=== PATIENT | male | born 1945 | race Caucasian/White ===

== ENCOUNTER 2019-04-16 01:10 | Inpatient (IN) ==
--- NOTE | 2019-04-16 01:17 | Emergency Department Note ---
ED Disposition Clinical Impression: STEMI (ST elevation myocardial infarction) Qualifiers: Involved coronary artery: unspecified coronary artery Qualified Code(s): I21.3 - ST elevation (STEMI) myocardial infarction of unspecified site Disposition: Admitted As Inpatient Condition on Discharge: Serious Referrals: Provider,Referral, MD [Primary Care Provider] - - Critical Care Critical Care Time: Yes Attestation: On , the high probability of a clinically significant, sudden or life threatening deterioration of the following system(s) required my full and direct attention, intervention and personal management. The time I documented below is in addition to time spent performing reported procedures but includes the following listed in this critical care notation. Total Critical Care Time: 30 Vital system(s) involved:: Respiratory Failure My critical care processes included: Assessment & monitoring of V/S, Initial and Re-exams, Data Review/Interpretation, Coordinating Care, Medication Orders and management, Documentation Medical Decision Making - Dylan Inquiry Pt receiving controlled substance: Yes Dylan was queried for this patient: No Reason not queried -: Emergent pt cond-no time Risks and benefits of using a controlled substance: were not discussed with pt by me Vital Signs: 04/16/19 01:11 04/16/19 01:18 04/16/19 01:24 Temperature 97.6 F 97.6 F Temperature Source Oral Oral Pulse Rate Pulse Rate [Right] 113 H 113 H 109 H Respiratory Rate 20 20 20 Blood Pressure Blood Pressure [Right Arm] 140/79 140/79 143/54 H Blood Pressure Mean [Right Arm] 99 99 83 Blood Pressure Source [Right Arm] Automatic Cuff Automatic Cuff Automatic Cuff Blood Pressure Position [Right Arm] Supine Supine Supine 02 Sat by Pulse Oximetry 99 99 100 Oxygen Delivery Method Room Air Room Air Nasal Cannula Oxygen Flow Rate (LPM) 2 04/16/19 01:30 04/16/19 01:39 Temperature 97.6 F 97.6 F Temperature Source Oral Oral Pulse Rate 84 Pulse Rate [Right] 84 Respiratory Rate 20 16 Blood Pressure 96/58 L Blood Pressure [Right Arm] 96/58 L Blood Pressure Mean [Right Arm] 70 Blood Pressure Source [Right Arm] Automatic Cuff Blood Pressure Position [Right Arm] Supine 02 Sat by Pulse Oximetry 97 Oxygen Delivery Method Nasal Cannula Nasal Cannula Oxygen Flow Rate (LPM) 2 2 - Lab Data Lab Results 04/16/19 01:10: WBC 12.4 H, RBC 5.35, Hgb 16.3, Hct 50.2, MCV 93.8, MCH 30.5, MCHC 32.5, RDW 12.9, Plt Count 315, MPV 9.3, Neut % (Auto) 49.3, Lymph % (Auto) 41.0, [place] % (Auto) 6.5, Eos % (Auto) 2.6, Baso % (Auto) 0.7, Neut # (Auto) 6.1, Lymph # (Auto) 5.1 H, [place] # (Auto) 0.8, Eos # (Auto) 0.3, Baso # (Auto) 0.1 Result diagrams: 04/16/19 01:10 Orders (Tests/Meds): ED MEDICATIONS Generic Name Dose Route Start Last Admin Trade Name Freq PRN Reason Stop Dose Admin Diphenhydramine HCl 50 mg 04/16/19 01:30 Benadryl 50mg/1ml Vial IV 04/16/19 01:31 ONCE ONE Fentanyl Citrate 25 mcg 04/16/19 01:30 Fentanyl 250mcg/5ml Vial IV 04/17/19 01:30 Q3MINP PRN Moderate to Severe Pain Fentanyl Citrate 50 mcg 04/16/19 01:30 Fentanyl 250mcg/5ml Vial IV 04/17/19 01:30 Q3MINP PRN Moderate to Severe Pain Flumazenil 0.2 mg 04/16/19 01:30 Romazicon 0.1mg/Ml 5ml Vial IV 04/16/19 23:00 NEEDED PRN Sedation Heparin Sodium (Porcine) 10,000 unit 04/16/19 01:30 Heparin 1,000 Units/Ml 10ml Vial ([facility]) IV 04/16/19 05:30 NEEDED PRN Emergency [facility] Heparin Sodium/Sodium Chloride 3,000 unit 04/16/19 01:30 Heparin 1000 Units/500ml Ns ([facility]) IV 04/16/19 01:31 ONCE ONE Sodium Chloride 1,000 mls @ 25 mls/hr 04/16/19 01:30 Sod Chlor 0.9% 1000ml Bag IV 04/17/19 01:30 .Q25H REHAN Sodium Chloride 1,000 mls @ 999 mls/hr 04/16/19 01:45 Sod Chlor 0.9% 1000ml Bag IV 04/16/19 02:45 .Q1H1M REHAN Lidocaine HCl 20 ml 04/16/19 01:30 Lidocaine 1% 20ml Mdv IJ 04/16/19 01:31 ONCE ONE Midazolam HCl 1 mg 04/16/19 01:30 Midazolam 2mg/2ml Vial IV 04/17/19 01:30 Q3MINP PRN Sedation Midazolam HCl 1 mg 04/16/19 01:30 Midazolam 1mg/Ml 5ml Vial IV 04/17/19 01:30 Q3MINP PRN Sedation Naloxone HCl 0.4 mg 04/16/19 01:30 Narcan 0.4mg/Ml Vial IV 04/17/19 01:30 Q5MINP PRN Decreased Respirations Nitroglycerin 0.4 mg 04/16/19 01:17 04/16/19 01:25 Nitrostat 0.4mg Sl Tablet SL 04/17/19 01:17 0.4 mg Q5MINP PRN Administration Chest Pain Nitroglycerin 800 mcg 04/16/19 01:30 Nitroglycerin 800mcg/8ml Syr ([facility]) IV 04/17/19 01:30 NEEDED PRN Emergency [facility] [employer] [facility] Verapamil HCl 2.5 mg 04/16/19 01:30 Verapamil 2.5mg/Ml 2ml Vial IV 04/16/19 01:31 ONCE ONE Discontinued Medications Generic Name Dose Route Start Last Admin Trade Name Freq PRN Reason Stop Dose Admin Aspirin 243 mg 04/16/19 01:21 04/16/19 01:25 Aspirin 81mg Chewable Tablet PO 04/16/19 01:22 243 mg ONCE ONE Administration Heparin Sodium (Porcine) 12,500 unit 04/16/19 01:24 04/16/19 01:26 Heparin Sodium 5,000 Units/Ml Vial IV 04/16/19 01:25 12,500 unit ONCE ONE Administration Morphine Sulfate 4 mg 04/16/19 01:17 04/16/19 01:21 Morphine 4mg/Ml Syringe IV 04/16/19 01:18 4 mg ONCE ONE Administration Ondansetron HCl 4 mg 04/16/19 01:17 04/16/19 01:21 Zofran 4mg/2ml Vial IV 04/16/19 01:18 4 mg ONCE ONE Administration Ticagrelor 180 mg 04/16/19 01:24 04/16/19 01:26 Brilinta 90mg Tablet PO 04/16/19 01:25 180 mg ONCE ONE Administration ORDERS Category Date Time Status Chest XR -- portable [XR chest portable] Stat Exams 04/16/19 01:15 Taken Basic Metabolic Panel Stat Lab 04/16/19 01:10 Ordered Troponin I Stat Lab 04/16/19 01:10 Ordered - Radiology Data #1 Image(s): Chest Image Reviewed: Yes I reviewed the patient's radiology image Cardiomegaly, no acute process - ECG Data Tracing #1 EKG interpreted by Ugo Deshpande MD: Rhythm: Atrial fibrillation Rate: 95 [place]: Left Ectopy: none Conduction: normal ST Segment Changes: Elevation in leads I and aVL, depression in inferior leads T Wave Changes: none Q Waves: none No evidence of acute ischemia or injury Medical Decision Narrative: Patient voiced preference to be transferred to the [facility]. I advised against it. I advised him that time to balloon and open arteries the most important thing in myocardial infarction. He agrees to stay here to be treated but once the ID contacted to advise that he is here. Case discussed with Dr. Yip who requests 100 units/kg of heparin and 180 mg of Brilinta and he will come in to take the patient to the [facility]. General Adult HPI - General Chief complaint: Chest Pain Stated complaint: chest pain Time Seen by Provider: 04/16/19 01:11 - History of Present Illness HPI narrative: 30 to 45 minutes ago developed chest pain into his left arm with shortness of breath, nausea, diaphoresis. Prior history of coronary artery disease with stent placement in 2004 at the [facility]. Also has paroxysmal atrial fibrillation. He normally takes Xarelto, but has been off of it for a few days because he is supposed to have an epidural injection into his back on Wednesday of this week. He took 1 baby aspirin today. He took one nitroglycerin in route to the hospital. Pain is 04/06. States that he has a sensitivity to morphine which causes nausea and vomiting. He can take morphine if he gets something for nausea and vomiting first. - Related Data Allergies Allergy/AdvReac Type Severity Reaction Status Date / Time Indomethacin Allergy Unknown Uncoded 06/15/17 15:03 Hydromorphone AdvReac Mild Nausea Uncoded 04/16/19 01:17 [facility] History - Hepatitis A Screen Attestation statement:: This patient has been screened for Hepatitis A risk factors. I have reviewed the patient's past medical history: Yes ROS Obtained: Yes All systems reviewed & no additional complaints - Cardiovascular Cardiovascular: Reports chest pain, Reports diaphoresis - Respiratory Respiratory: Yes dyspnea - Gastrointestinal Gastrointestingal: Reports: nausea Physical Exam - General General appearance: alert, anxious - Head Head exam: atraumatic, normocephalic - Eye Eye exam: Present: normal appearance, EOMI - ENT ENT exam: Present: mucous membranes moist - Neck Neck exam: Present: normal inspection, trachea midline - Chest Chest inspection: Present: normal inspection, symmetric chest wall rise - Respiratory Respiratory exam: Present: normal lung sounds bilaterally. Absent: respiratory distress - Cardiovascular Cardiovascular exam: Present: tachycardia, irregular rhythm, normal heart sounds - Abdominal Exam Abdominal exam: Present: soft. Absent: distention, tenderness - Extremities Exam Extremities exam: Present: normal inspection - Neurological Exam Neurological exam: Present: alert, oriented X3 - Psychiatric Psychiatric exam: Present: anxious - Skin Skin exam: Present: warm, dry
[2019-04-16 01:25] LABS: Basophils # 0.1 K/mm3 (0-0.2); Basophils % 0.7 % (0.1-2.0); Eosinophils # 0.3 K/mm3 (0.0-0.4); Eosinophils % 2.6 % (0.1-12.0); Hematocrit 50.2 % (42.0-52.0); Hemoglobin 16.3 g/dL (14.1-18.0); Lymphocytes # 5.1 K/mm3 (0.7-4.5); Mean Corpuscular HGB Conc 32.5 g/dL (31.8-35.4); Mean Corpuscular Volume 93.8 fl (80-94); Mean Platelet Volume 9.3 fl (7.4-10.4); Monocytes # 0.8 K/mm3 (0.1-1.0); Monocytes % 6.5 % (1.7-9.3); Neutrophils # 6.1 K/mm3 (1.8-7.8); Neutrophils % 49.3 % (37.0-80.0); Platelet Count 315 K/mm3 (142-424); Red Blood Count 5.35 M/mm3 (4.60-6.20); Red Cell Distribution Width 12.9 % (11.5-17.5); White Blood Count 12.4 K/mm3 (4.8-10.8)
[2019-04-16 02:10] LABS: Anion Gap 18.7 mEq/L (5-15); Calcium 9.3 mg/dL (8.5-10.1)
[2019-04-16 06:32] LABS: Basophils % 0.3 % (0.1-2.0); Eosinophils % 0.4 % (0.1-12.0); Hematocrit 45.6 % (42.0-52.0); Hemoglobin 15.4 g/dL (14.1-18.0); Lymphocytes # 1.5 K/mm3 (0.7-4.5); Lymphocytes % 15.3 % (10-50); Mean Corpuscular HGB Conc 33.7 g/dL (31.8-35.4); Mean Corpuscular Volume 92.9 fl (80-94); Mean Platelet Volume 8.6 fl (7.4-10.4); Monocytes # 0.4 K/mm3 (0.1-1.0); Monocytes % 3.9 % (1.7-9.3); Neutrophils % 80.1 % (37.0-80.0); Platelet Count 228 K/mm3 (142-424); Red Blood Count 4.91 M/mm3 (4.60-6.20); Red Cell Distribution Width 12.7 % (11.5-17.5)
[2019-04-16 06:43] LABS: Anion Gap 16.5 mEq/L (5-15); Calcium 8.8 mg/dL (8.5-10.1)
--- NOTE | 2019-04-16 07:43 | History & Physical Report ---
*Admission Date: 04/16/19 *Chief complaint: chest pain, STEMI *History of present illness: Mr. Min is a 73-year-old male who usually gets his care from the [place] who presented acutely last night to the ER due to onset of chest pain. States he was at home and had some slight discomfort early in the afternoon that self resolved. Was not brought on by stress or exertion. He was watching football last night and had worsening onset of chest pain late last night between 10 and 12 in onset of numbness in his left arm. This was followed abruptly by significant pain and pressure in his chest like somebody was sitting on it. He had his drive him initially headed to the [place] but did not feel that he could make it that far so they stopped at [facility] for acute management. Upon arrival he was found to have a STEMI and was taken emergently to the [facility]. Admitted to medicine for further management after left heart cath and placement of 2 stents in proximal LAD. Patient otherwise has no complaints and is at his baseline level of function. History complicated by diabetes, chronic back pain, history of coronary artery disease and A. fib on Xarelto and aspirin. Denies any nausea, vomiting, shortness of breath. Chest pain resolved. Chronic edema in bilateral lower extremities. Is fixated this morning on getting to the [place] as that is where he gets all of his care. Does report he has a follow-up with his PCP on Wednesday in [facility] History I have reviewed the patient's past medical history: Yes Medical History: Reports:: Diabetes Mellitus Type 2, Hypertension Denies:: Cancer, MRSA *Have you ever received a pneumonia vaccine?: Yes *Have you received a flu vaccine this season?: Yes Other Medical History: Reports: Hypothyroidism Laterality Cases: Right: Arthroscopy Knee Other Surgeries: Yes: Cardiac Catheterization - *Social History Smoking Status: Current some day smoker Tobacco Type: smokeless tobacco # Packs/Day (cigarettes): 1 Alcohol Intake: never *Occupational Status:: disabled Housing: house Household Members: spouse *Travel in the last 8 weeks: None Family Hx:: No significant family history Review of Systems - Review of Systems Review of systems:: pertinent systems reviewed and negative unless documented below Meds Home Medications Medication Instructions Recorded Confirmed Type Aspirin 81 mg PO DAILY 04/16/19 04/16/19 History Atorvastatin Calcium [Atorvastatin 80 mg PO HS 04/16/19 04/16/19 History 80mg Tab] Felodipine [Felodipine ER] 10 mg PO DAILY 04/16/19 04/16/19 History Finasteride [Proscar] 5 mg PO DAILY 04/16/19 04/16/19 History Gabapentin [Gabapentin 300mg Cap] 300 mg PO TID 04/16/19 04/16/19 History Insulin Glargine,Hum.rec.anlog 50 unit SQ BID 04/16/19 04/16/19 History [Insulin Glargine 100 Units/mL 3mL flexpen] Isosorbide Mononitrate [Imdur 60mg 60 mg PO DAILY 04/16/19 04/16/19 History ER tablet] Lisinopril [Lisinopril 40mg Tablet] 40 mg PO DAILY 04/16/19 04/16/19 History Metformin HCl 500 mg PO TID 04/16/19 04/16/19 History Metoprolol Tartrate 25 mg PO BID 04/16/19 04/16/19 History Omeprazole [Omeprazole 20mg 20 mg PO DAILY 04/16/19 04/16/19 History Capsule] glipiZIDE [Glipizide] 10 mg PO BID 04/16/19 04/16/19 History hydroCHLOROthiazide [HCTZ 25mg 25 mg PO DAILY 04/16/19 04/16/19 History tab] Allergies Allergy/AdvReac Type Severity Reaction Status Date / Time Indomethacin Allergy Unknown Uncoded 06/15/17 15:03 Hydromorphone AdvReac Mild Nausea Uncoded 04/16/19 01:17 Exam Vital signs and Labs for Last 24 Hours: Temp Pulse Resp BP Pulse Ox 97.9 F 92 H 16 129/82 92 L 04/16/19 04:35 04/16/19 06:50 04/16/19 06:50 04/16/19 06:50 04/16/19 06:50 Laboratory Results - last 24 hr 04/16/19 01:10: WBC 12.4 H, RBC 5.35, Hgb 16.3, Hct 50.2, MCV 93.8, MCH 30.5, MCHC 32.5, RDW 12.9, Plt Count 315, MPV 9.3, Neut % (Auto) 49.3, Lymph % (Auto) 41.0, [place] % (Auto) 6.5, Eos % (Auto) 2.6, Baso % (Auto) 0.7, Neut # (Auto) 6.1, Lymph # (Auto) 5.1 H, [place] # (Auto) 0.8, Eos # (Auto) 0.3, Baso # (Auto) 0.1 04/16/19 01:30: Sodium 136, Potassium 3.7, Chloride 99, Carbon Dioxide 22, Anion Gap 18.7 H, BUN 23 H, Creatinine 1.32 H, Estimated Creat Clear 51, Estimated GFR 53 L, Est GFR ( Amer) 65, Glucose 355 H, Calcium 9.3, Troponin I 0.14 H 04/16/19 01:58: Activated Clotting Time 216 H* 04/16/19 02:41: Activated Clotting Time > 400 H* D 04/16/19 06:00: WBC 10.0, RBC 4.91, Hgb 15.4, Hct 45.6, MCV 92.9, MCH 31.3 H, MCHC 33.7, RDW 12.7, Plt Count 228 D, MPV 8.6, Neut % (Auto) 80.1 H, Lymph % (Auto) 15.3, [place] % (Auto) 3.9, Eos % (Auto) 0.4, Baso % (Auto) 0.3, Neut # (Auto) 8.0 H, Lymph # (Auto) 1.5, [place] # (Auto) 0.4, Eos # (Auto) 0.0, Baso # (Auto) 0.0 04/16/19 06:00: Sodium 135 L, Potassium 4.5 D, Chloride 101, Carbon Dioxide 22, Anion Gap 16.5 H, BUN 19 H, Creatinine 0.99 D, Estimated Creat Clear 66, Estimated GFR 75, Est GFR ( Amer) 90 D, Glucose 282 H D, Calcium 8.8 I & O for Last 24 hours: Intake & Output 04/13/19 04/14/19 04/15/19 04/16/19 23:59 23:59 23:59 23:59 Intake Total 150 / 150 Output Total 500 / 500 Balance -350 / -350 Weight 127.7 kg - Constitutional no acute distress, morbidly obese - *Routine HEENT Exam Head: Present: normocephalic Eye: Present: EOMI, PERRL ENT: Present: mucous membranes moist - *Routine Neck Exam Present: supple. Absent: lymphadenopathy - *Routine Respiratory Exam Present: CTA bilaterally - *Routine Cardiovascular Exam Present: irregularly irregular. Absent: murmur - *Routine Abdominal Exam Present: soft, normoactive bowel sounds. Absent: tenderness - *Routine Extremities Exam Present: edema (2+ to knees). Absent: cyanosis, clubbing - *Routine Skin Exam Present: warm. Absent: rash - *Routine Neurological Exam Present: alert, oriented X3 Assessment and Plan (1) STEMI (ST elevation myocardial infarction) Current visit: Yes Status: Acute Qualifiers: Involved coronary artery: unspecified coronary artery Qualified Code(s): I21.3 - ST elevation (STEMI) myocardial infarction of unspecified site Category: Medical Code(s): I21.3 - ST elevation (STEMI) myocardial infarction of unspecified site 73-year-old male with inferior lateral STEMI noted on EKG with elevated troponin on admission. Taken to the [facility] emergently with identification of proximal LAD stenosis. Cardiology recommendations and findings as follows from left heart catheterization procedure note: Impression: Acute thrombosis of the ramus intermedius Successful thrombectomy the ramus intermedius followed by drug-eluting stent to the proximal portion extending back into the left main artery. Successful angioplasty left main artery post dilate stent and provide better stent apposition to the left main artery Successful stenting of the ostial proximal LAD severe disease reduced to 0% with one drug-eluting stent Normal ejection fraction Normal mild LVEDP 1. Patient will require triple therapy for at least 1 month which includes anticoagulant with a goal INR between 2 and 3 and less a NOAC drug is used. If the NOAC is going to be used I recommend Xarelto 20 mg daily 2. Brilinta 90 twice daily for 1 year 3. Aspirin 81 mg a day for 30 days 4. Risk factor modification 5. Avoidance of tobacco products 6. LDL goal 55 or less to be achieved with high intensity statin 7. And beta-blockers and ELLA inhibitors as tolerated 8. Cardiac rehabilitation 9. Echocardiogram Wednesday morning (2) Diabetes Current visit: Yes Status: Acute Category: Medical Code(s): E11.9 - Type 2 diabetes mellitus without complications (3) Hypertension Current visit: Yes Status: Acute Category: Medical Code(s): I10 - Essential (primary) hypertension (4) Class 3 severe obesity due to excess calories in adult Current visit: Yes Status: Acute Category: Medical Code(s): E66.01 - Morbid (severe) obesity due to excess calories (5) Atrial fibrillation Current visit: Yes Status: Acute Category: Medical Code(s): I48.91 - Unspecified atrial fibrillation - Assessment and plan all Dx Assessment and Plan for all problems:: 73-year-old male status post STEMI. Heart cath performed placement of stents. Will monitor for the next 24 hours. Continuing Integrilin drip until this evening. Plan for echocardiogram in the morning to assess and diastolic funct ion and wall motion abnormalities. We will plan to transition to goal-directed therapy consisting of triple therapy for anticoagulation and antiplatelets, resume home beta-monty, resume home insulin regimen, resume home ELLA inhibitor and statin when appropriate. Continues to require inpatient management. Will have patient follow-up closely with his primary care at the [place] after discharge.
--- NOTE | 2019-04-16 13:05 | Pharmacy Consult Notes ---
[facility] Pharmacy VTE Monitoring - Patient Demographics Admission date: 04/16/19 Report Date: 04/16/19 Time: 13:05 Allergies/Adverse Reactions: Patient Allergies Indomethacin Allergy (Unknown, Uncoded 06/15/17 15:03) Hydromorphone Adverse Reaction (Mild, Uncoded 04/16/19 01:17) Nausea Height: 1.75 m Weight: 127.7 kg Patient Problems: Current Active Problems STEMI (ST elevation myocardial infarction) (Acute) Diabetes (Acute) Hypertension (Acute) Class 3 severe obesity due to excess calories in adult (Acute) Atrial fibrillation (Acute) - VTE Risk Labs: VTE Related Lab Results Hgb 15.4 g/dL (14.1-18.0) 04/16/19 06:00 Hct 45.6 % (42.0-52.0) 04/16/19 06:00 Plt Count 228 K/mm3 (142-424) D 04/16/19 06:00 BUN 19 mg/dL (7-18) H 04/16/19 06:00 Creatinine 0.99 mg/dL (0.70-1.30) D 04/16/19 06:00 Estimated Creat Clear 66 mL/min (50-200) 04/16/19 06:00 Was VTE Risk Assessment Performed: Yes VTE Score: 4 VTE Risk Level: Low Risk - Prophylaxis VTE Prophylaxis Ordered?: Yes Types of VTE Prophylaxis: Pharmacological Pharmacologic Type: Other (BRILINTA AND INTEGRILIN) - VTE Diagnosis Confirmed Treatment or plan recommended: Continue Current Treatment
--- NOTE | 2019-04-16 21:07 | Discharge Summary ---
General - General Admission date:: 04/16/19 <Dov Early - 04/17/19 07:24> 04/16/19 <Dwight Dexter - 04/16/19 21:07> Discharge date: 04/17/19 <IsaccDwight - 04/16/19 21:07> HPI HPI: Mr. Min is a 73-year-old male who usually gets his care from the [facility] who presented acutely last night to the ER due to onset of chest pain. States he was at home and had some slight discomfort early in the afternoon that self resolved. Was not brought on by stress or exertion. He was watching football last night and had worsening onset of chest pain late last night between 10 and 12 in onset of numbness in his left arm. This was followed abruptly by significant pain and pressure in his chest like somebody was sitting on it. He had his drive him initially headed to the [facility] but did not feel that he could make it that far so they stopped at [facility] for acute management. Upon arrival he was found to have a STEMI and was taken emergently to the [facility]. Admitted to medicine for further management after left heart cath and placement of 2 stents in proximal LAD. Patient otherwise has no complaints and is at his baseline level of function. History complicated by diabetes, chronic back pain, history of coronary artery disease and A. fib on Xarelto and aspirin. Denies any nausea, vomiting, shortness of breath. Chest pain resolved. Chronic edema in bilateral lower extremities. Is fixated this morning on getting to the [facility] as that is where he gets all of his care. Does report he has a follow-up with his PCP on Wednesday in [place] <Dwight Dexter - 04/16/19 21:07> Hospital Course Hospital Course: Patient was admitted as noted above. Subjected to left heart cath. Angiographic results as noted below. ANGIOGRAPHIC RESULTS The left main artery Normal The left anterior descending artery Has a severe ostial and proximal 80 and 90% stenosis. The circumflex artery A large ramus intermedius has a thrombus which extends off the left main artery into the proximal segment. This is a large caliber vessel. The first obtuse marginal artery is a large 4 mm vessel and has mild mid vessel 20% stenosis The right coronary artery Is a large dominant vessel and has an ostial 20% stenosis with mild 10% luminal irregularities The PRATT ventriculogram reveals Normal 65% The left ventricular end-diastolic pressure 15 mmHg IMPRESSION Acute thrombosis of the ramus intermedius Successful thrombectomy the ramus intermedius followed by drug-eluting stent to the proximal portion extending back into the left main artery. Successful angioplasty left main artery post dilate stent and provide better stent apposition to the left main artery Successful stenting of the ostial proximal LAD severe disease reduced to 0% with one drug-eluting stent Normal ejection fraction Normal mild LVEDP PLAN 1. Patient will require triple therapy for at least 1 month which includes anticoagulant with a goal INR between 2 and 3 and less a NOAC drug is used. If the NOAC is going to be used I recommend Xarelto 20 mg daily 2. Brilinta 90 twice daily for 1 year 3. Aspirin 81 mg a day for 30 days 4. Risk factor modification 5. Avoidance of tobacco products 6. LDL goal 55 or less to be achieved with high intensity statin 7. And beta-blockers and ELLA inhibitors as tolerated 8. Cardiac rehabilitation 9. Echocardiogram Wednesday morning Above per cardiology consultation/heart cath: Patient did well overnight. This morning is feeling well. No complaints of chest pain or dyspnea. Patient will be discharged this morning, [facility] to obtain prescriptions as noted above and to resume care. Patient will have cardiology follow-up in the next week to review heart cath. <Dov Early - 04/17/19 07:24> Objective Vital signs: Temp Pulse Resp BP Pulse Ox 98.2 F 87 16 128/66 96 04/17/19 04:00 04/17/19 07:00 04/17/19 07:00 04/17/19 07:00 04/17/19 07:00 <Dov Early - 04/17/19 07:24> Temp Pulse Resp BP Pulse Ox 97.9 F 89 16 155/94 H 95 04/16/19 18:00 04/16/19 17:00 04/16/19 17:00 04/16/19 17:00 04/16/19 17:00 <Dwight Dexter - 04/16/19 21:07> Narrative: Patient is alert. Pleasant. Oriented x3. ENT exam clear. Morbid obesity limits accuracy of exam. Abdomen soft. Lungs are clear in the anterior dong. Heart rate regular without murmurs. Radial arm cath site clear of bruising, good pulses. No distal edema or clubbing. Neurologically intact except for weakness in legs from his previous arthropathies. <Dov Early - 04/17/19 07:24> Results Labs on day of discharge: Labs from last 24 hours 04/17/19 04/17/19 04/17/19 05:40 05:40 05:33 WBC 8.3 RBC 5.11 Hgb 15.6 Hct 45.9 MCV 89.8 MCH 30.5 MCHC 33.9 RDW 12.9 Plt Count 219 MPV 8.1 Neut % (Auto) 64.0 Lymph % (Auto) 25.0 [place] % (Auto) 7.6 Eos % (Auto) 2.9 Baso % (Auto) 0.5 Neut # (Auto) 5.3 Lymph # (Auto) 2.1 [place] # (Auto) 0.6 Eos # (Auto) 0.2 Baso # (Auto) 0.0 Sodium 137 Potassium 3.6 Chloride 103 Carbon Dioxide 26 Anion Gap 11.6 BUN 11 D Creatinine 0.88 Estimated Creat Clear 66 Estimated GFR 85 Est GFR ( Amer) 103 Glucose 172 H D POC Glucose 167 H Calcium 8.6 Magnesium 1.2 L Total Bilirubin 1.0 AST 82 H ALT 27 Alkaline Phosphatase 110 Total Protein 6.6 Albumin 3.1 L Globulin 3.5 H Albumin/Globulin Ratio 0.9 L 04/16/19 04/16/19 21:26 16:56 WBC RBC Hgb Hct MCV MCH MCHC RDW Plt Count MPV Neut % (Auto) Lymph % (Auto) [place] % (Auto) Eos % (Auto) Baso % (Auto) Neut # (Auto) Lymph # (Auto) [place] # (Auto) Eos # (Auto) Baso # (Auto) Sodium Potassium Chloride Carbon Dioxide Anion Gap BUN Creatinine Estimated Creat Clear Estimated GFR Est GFR ( Amer) Glucose POC Glucose 200 H 309 H* Calcium Magnesium Total Bilirubin AST ALT Alkaline Phosphatase Total Protein Albumin Globulin Albumin/Globulin Ratio <Dov Early - 04/17/19 07:24> Labs from last 24 hours 04/16/19 04/16/19 04/16/19 16:56 06:00 06:00 WBC 10.0 RBC 4.91 Hgb 15.4 Hct 45.6 MCV 92.9 MCH 31.3 H MCHC 33.7 RDW 12.7 Plt Count 228 D MPV 8.6 Neut % (Auto) 80.1 H Lymph % (Auto) 15.3 [place] % (Auto) 3.9 Eos % (Auto) 0.4 Baso % (Auto) 0.3 Neut # (Auto) 8.0 H Lymph # (Auto) 1.5 [place] # (Auto) 0.4 Eos # (Auto) 0.0 Baso # (Auto) 0.0 Activated Clotting Time Sodium 135 L Potassium 4.5 D Chloride 101 Carbon Dioxide 22 Anion Gap 16.5 H BUN 19 H Creatinine 0.99 D Estimated Creat Clear 66 Estimated GFR 75 Est GFR ( Amer) 90 D Glucose 282 H D POC Glucose 309 H* Calcium 8.8 Troponin I 04/16/19 04/16/19 04/16/19 02:41 01:58 01:30 WBC RBC Hgb Hct MCV MCH MCHC RDW Plt Count MPV Neut % (Auto) Lymph % (Auto) [place] % (Auto) Eos % (Auto) Baso % (Auto) Neut # (Auto) Lymph # (Auto) [place] # (Auto) Eos # (Auto) Baso # (Auto) Activated Clotting Time > 400 H* D 216 H* Sodium 136 Potassium 3.7 Chloride 99 Carbon Dioxide 22 Anion Gap 18.7 H BUN 23 H Creatinine 1.32 H Estimated Creat Clear 51 Estimated GFR 53 L Est GFR ( Amer) 65 Glucose 355 H POC Glucose Calcium 9.3 Troponin I 0.14 H 04/16/19 01:10 WBC 12.4 H RBC 5.35 Hgb 16.3 Hct 50.2 MCV 93.8 MCH 30.5 MCHC 32.5 RDW 12.9 Plt Count 315 MPV 9.3 Neut % (Auto) 49.3 Lymph % (Auto) 41.0 [place] % (Auto) 6.5 Eos % (Auto) 2.6 Baso % (Auto) 0.7 Neut # (Auto) 6.1 Lymph # (Auto) 5.1 H [place] # (Auto) 0.8 Eos # (Auto) 0.3 Baso # (Auto) 0.1 Activated Clotting Time Sodium Potassium Chloride Carbon Dioxide Anion Gap BUN Creatinine Estimated Creat Clear Estimated GFR Est GFR ( Amer) Glucose POC Glucose Calcium Troponin I <Dwight Dexter - 04/16/19 21:07> DS: Diagnosis - Discharge Diagnosis (1) STEMI (ST elevation myocardial infarction) Status: Acute (2) Diabetes Status: Acute (3) Hypertension Status: Acute (4) Class 3 severe obesity due to excess calories in adult Status: Acute (5) Atrial fibrillation Status: Acute <Dwight Dexter - 04/16/19 21:05> (1) STEMI (ST elevation myocardial infarction) Status: Acute (2) Diabetes Status: Chronic (3) Hypertension Status: Chronic (4) Class 3 severe obesity due to excess calories in adult Status: Chronic (5) Atrial fibrillation Status: Chronic <TomasclintonDov - 04/17/19 07:24> Discharge Plan - Patient Discharge Instructions ACTIVITY: Continue current activity <Dov Early - 04/17/19 07:24> Limited activity <Dwight Dexter - 04/16/19 21:07> DIET: low fat, low cholesterol <Dov Early - 04/17/19 07:24> low fat, low cholesterol <Dwight Detxer - 04/16/19 21:07> Patient Instructions: Angina, Cardiac Catheterization, Heart-Healthy Diet, DI for Angina, DI for Cardiac Catheterization, Heart Healthy Physical Activity <Dov Early - 04/17/19 07:24> Forms: <Dov Early - 04/17/19 07:24> - Follow up Plan Follow up with: Provider,Referral, MD [Primary Care Provider] - Gilmar Yip MD [Staff Physician] - 1 week <Dov Early - 04/17/19 07:24> Disposition: Home, Self-Care <Dov Early - 04/17/19 07:24> Home Medications: Home Medications Medication Instructions Recorded Confirmed Type Aspirin 81 mg PO DAILY 04/16/19 04/16/19 History Atorvastatin Calcium [Atorvastatin 80 mg PO HS 04/16/19 04/16/19 History 80mg Tab] Felodipine [Felodipine ER] 10 mg PO DAILY 04/16/19 04/16/19 History Finasteride [Proscar] 5 mg PO DAILY 04/16/19 04/16/19 History Gabapentin [Gabapentin 300mg Cap] 900 mg PO TID 04/16/19 04/16/19 History Insulin Glargine,Hum.rec.anlog 50 unit SQ BID 04/16/19 04/16/19 History [Insulin Glargine 100 Units/mL 3mL flexpen] Isosorbide Mononitrate [Imdur 60mg 60 mg PO DAILY 04/16/19 04/16/19 History ER tablet] Lisinopril [Lisinopril 40mg Tablet] 40 mg PO DAILY 04/16/19 04/16/19 History Metformin HCl 1,500 mg PO DAILY 04/16/19 04/16/19 History Metoprolol Tartrate 25 mg PO BID 04/16/19 04/16/19 History Omeprazole [Omeprazole 20mg 20 mg PO DAILY 04/16/19 04/16/19 History Capsule] Rivaroxaban [Xarelto 20mg Tablet] 20 mg PO 1700 04/16/19 04/16/19 History Salsalate 750 mg PO Q8HP PRN 04/16/19 04/16/19 History glipiZIDE [Glipizide] 10 mg PO BID 04/16/19 04/16/19 History hydroCHLOROthiazide [HCTZ 25mg 25 mg PO DAILY 04/16/19 04/16/19 History tab] Ticagrelor [Brilinta 90mg Tablet] 90 mg PO BID 30 Days #60 tab 04/17/19 Rx <Dov Early - 04/17/19 07:24> Prescriptions/Medication Reconciliation: New Ticagrelor [Brilinta 90mg Tablet] 90 mg PO BID 30 Days #60 tab Continued hydroCHLOROthiazide [HCTZ 25mg tab] 25 mg PO DAILY Atorvastatin Calcium [Atorvastatin 80mg Tab] 80 mg PO HS Omeprazole [Omeprazole 20mg Capsule] 20 mg PO DAILY Metoprolol Tartrate 25 mg PO BID Metformin HCl 1,500 mg PO DAILY Isosorbide Mononitrate [Imdur 60mg ER tablet] 60 mg PO DAILY Insulin Glargine,Hum.rec.anlog [Insulin Glargine 100 Units/mL 3mL flexpen] 50 unit SQ BID Gabapentin [Gabapentin 300mg Cap] 900 mg PO TID Finasteride [Proscar] 5 mg PO DAILY Felodipine [Felodipine ER] 10 mg PO DAILY Aspirin 81 mg PO DAILY Lisinopril [Lisinopril 40mg Tablet] 40 mg PO DAILY glipiZIDE [Glipizide] 10 mg PO BID Salsalate 750 mg PO Q8HP PRN PRN Reason: pain Rivaroxaban [Xarelto 20mg Tablet] 20 mg PO 1700 <Dov Early - 04/17/19 07:24> - Problem Reconciliation Problems Reviewed?: Yes <Dov Early - 04/17/19 07:24> Yes <Dwight Dexter - 04/16/19 21:07>
[2019-04-17 06:09] LABS: Basophils % 0.5 % (0.1-2.0); Eosinophils # 0.2 K/mm3 (0.0-0.4); Eosinophils % 2.9 % (0.1-12.0); Hematocrit 45.9 % (42.0-52.0); Hemoglobin 15.6 g/dL (14.1-18.0); Lymphocytes # 2.1 K/mm3 (0.7-4.5); Mean Corpuscular HGB Conc 33.9 g/dL (31.8-35.4); Mean Corpuscular Volume 89.8 fl (80-94); Mean Platelet Volume 8.1 fl (7.4-10.4); Monocytes # 0.6 K/mm3 (0.1-1.0); Monocytes % 7.6 % (1.7-9.3); Neutrophils # 5.3 K/mm3 (1.8-7.8); Platelet Count 219 K/mm3 (142-424); Red Blood Count 5.11 M/mm3 (4.60-6.20); Red Cell Distribution Width 12.9 % (11.5-17.5); White Blood Count 8.3 K/mm3 (4.8-10.8)
[2019-04-17 06:24] LABS: Albumin Level 3.1 gm/dL (3.4-5.0); Albumin/Globulin Ratio 0.9 (1.1-1.8); Anion Gap 11.6 mEq/L (5-15); Calcium 8.6 mg/dL (8.5-10.1); Globulin 3.5 gm/dl (1.3-3.2); Total Protein,Serum 6.6 gm/dL (6.4-8.2)
[2019-04-17 07:06] VITALS: BP 128/66
--- NOTE | 2019-04-17 08:32 | Consult Report ---
History of Present Illness Consult date: 04/17/19 Requesting physician: Dov Early Consult reason: chest pain Chief complaint: chest pain Additional Medical History:: 1. HTN 2. DM2 3. A. fib A. Xarelto therapy 4. CAD A. STEMI, 03/2019 B. LHC, 03/2019, ANGIOGRAPHIC RESULTS The left main artery Normal The left anterior descending artery Has a severe ostial and proximal 80 and 90% stenosis. The circumflex artery A large ramus intermedius has a thrombus which extends off the left main artery into the proximal segment. This is a large caliber vessel. The first obtuse marginal artery is a large 4 mm vessel and has mild mid vessel 20% stenosis The right coronary artery Is a large dominant vessel and has an ostial 20% stenosis with mild 10% luminal irregularities The PRATT ventriculogram reveals Normal 65% The left ventricular end-diastolic pressure 15 mmHg IMPRESSION Acute thrombosis of the ramus intermedius Successful thrombectomy the ramus intermedius followed by drug-eluting stent to the proximal portion extending back into the left main artery. Successful angioplasty left main artery post dilate stent and provide better stent apposition to the left main artery Successful stenting of the ostial proximal LAD severe disease reduced to 0% with one drug-eluting stent Normal ejection fraction Normal mild LVEDP PLAN 1. Patient will require triple therapy for at least 1 month which includes anticoagulant with a goal INR between 2 and 3 and less a NOAC drug is used. If the NOAC is going to be used I recommend Xarelto 20 mg daily 2. Brilinta 90 twice daily for 1 year 3. Aspirin 81 mg a day for 30 days 4. Risk factor modification 5. Avoidance of tobacco products 6. LDL goal 55 or less to be achieved with high intensity statin 7. And beta-blockers and ELLA inhibitors as tolerated 8. Cardiac rehabilitation 9. Echocardiogram Wednesday morning History of present illness: Mr. Min is a 73-year-old male who usually gets his care from the [facility] who pr esented acutely last night to the ER due to onset of chest pain. States he was at home and had some slight discomfort early in the afternoon that self resolved. Was not brought on by stress or exertion. He was watching football last night and had worsening onset of chest pain late last night between 10 and 12 in onset of numbness in his left arm. This was followed abruptly by significant pain and pressure in his chest like somebody was sitting on it. He had his drive him initially headed to the [facility] but did not feel that he could make it that far so they stopped at [facility] for acute management. Upon arrival he was found to have a STEMI and was taken emergently to the [facility]. Admitted to medicine for further management after left heart cath and placement of 2 stents in proximal LAD and Ramus. Patient otherwise has no complaints and is at his baseline level of function. History complicated by diabetes, chronic back pain, history of coronary artery disease and A. fib on Xarelto and aspirin. Denies any nausea, vomiting, shortness of breath. Chest pain resolved. Chronic edema in bilateral lower extremities. Is fixated this morning on getting to the [facility] as that is where he gets all of his care. Does report he has a follow-up with his PCP on Wednesday in [place] The above per Dr. Early Chest pain symptoms resolved since coronary stenting. Pt insisting on going home to get to her PCP appointment. [facility] History Medical History: Reports:: Diabetes Mellitus Type 2, Hypertension Denies:: Cancer, MRSA *Have you ever received a pneumonia vaccine?: Yes *Have you received a flu vaccine this season?: Yes Other Medical History: Reports: Hypothyroidism Laterality Cases: Right: Arthroscopy Knee Other Surgeries: Yes: Cardiac Catheterization - *Social History Smoking Status: Current some day smoker Tobacco Type: smokeless tobacco # Packs/Day (cigarettes): 1 Alcohol Intake: never *Occupational Status:: disabled Housing: house Household Members: spouse *Travel in the last 8 weeks: None Family Hx:: No significant family history Meds Home Medications Medication Instructions Recorded Confirmed Type Aspirin 81 mg PO DAILY 04/16/19 04/16/19 History Atorvastatin Calcium [Atorvastatin 80 mg PO HS 04/16/19 04/16/19 History 80mg Tab] Felodipine [Felodipine ER] 10 mg PO DAILY 04/16/19 04/16/19 History Finasteride [Proscar] 5 mg PO DAILY 04/16/19 04/16/19 History Gabapentin [Gabapentin 300mg Cap] 900 mg PO TID 04/16/19 04/16/19 History Insulin Glargine,Hum.rec.anlog 50 unit SQ BID 04/16/19 04/16/19 History [Insulin Glargine 100 Units/mL 3mL flexpen] Isosorbide Mononitrate [Imdur 60mg 60 mg PO DAILY 04/16/19 04/16/19 History ER tablet] Lisinopril [Lisinopril 40mg Tablet] 40 mg PO DAILY 04/16/19 04/16/19 History Metformin HCl 1,500 mg PO DAILY 04/16/19 04/16/19 History Metoprolol Tartrate 25 mg PO BID 04/16/19 04/16/19 History Omeprazole [Omeprazole 20mg 20 mg PO DAILY 04/16/19 04/16/19 History Capsule] Rivaroxaban [Xarelto 20mg Tablet] 20 mg PO 1700 04/16/19 04/16/19 History Salsalate 750 mg PO Q8HP PRN 04/16/19 04/16/19 History glipiZIDE [Glipizide] 10 mg PO BID 04/16/19 04/16/19 History hydroCHLOROthiazide [HCTZ 25mg 25 mg PO DAILY 04/16/19 04/16/19 History tab] Ticagrelor [Brilinta 90mg Tablet] 90 mg PO BID 30 Days #60 tab 04/17/19 Rx Allergies Allergy/AdvReac Type Severity Reaction Status Date / Time Indomethacin Allergy Unknown Uncoded 06/15/17 15:03 Hydromorphone AdvReac Mild Nausea Uncoded 04/16/19 01:17 Review of Systems - *Cardiovascular Reports chest pain - *Respiratory Reports shortness of breath with activity - *Gastrointestinal Denies nausea, Denies vomiting - *Genitourinary Denies blood in urine - *Musculoskeletal Reports back pain, Denies joint pain - *Neurologic Denies fainting, Denies tingling Exam Vital signs and Labs for Last 24 Hours: Temp Pulse Resp BP Pulse Ox 98.2 F 87 16 128/66 96 04/17/19 04:00 04/17/19 07:00 04/17/19 07:00 04/17/19 07:00 04/17/19 07:00 Laboratory Results - last 24 hr 04/16/19 16:56: POC Glucose 309 H* 04/16/19 21:26: POC Glucose 200 H 04/17/19 05:33: POC Glucose 167 H 04/17/19 05:40: WBC 8.3, RBC 5.11, Hgb 15.6, Hct 45.9, MCV 89.8, MCH 30.5, MCHC 33.9, RDW 12.9, Plt Count 219, MPV 8.1, Neut % (Auto) 64.0, Lymph % (Auto) 25.0, [place] % (Auto) 7.6, Eos % (Auto) 2.9, Baso % (Auto) 0.5, Neut # (Auto) 5.3, Lymph # (Auto) 2.1, [place] # (Auto) 0.6, Eos # (Auto) 0.2, Baso # (Auto) 0.0 04/17/19 05:40: Sodium 137, Potassium 3.6, Chloride 103, Carbon Dioxide 26, Anion Gap 11.6, BUN 11 D, Creatinine 0.88, Estimated Creat Clear 66, Estimated GFR 85, Est GFR ( Amer) 103, Glucose 172 H D, Calcium 8.6, Magnesium 1.2 L, Total Bilirubin 1.0, AST 82 H, ALT 27, Alkaline Phosphatase 110, Total Protein 6.6, Albumin 3.1 L, Globulin 3.5 H, Albumin/Globulin Ratio 0.9 L I & O for Last 24 hours: Intake & Output 04/14/19 04/15/19 04/16/19 04/17/19 11:59 11:59 11:59 11:59 Intake Total 510 / 510 1685 / 1685 Output Total 688 / 688 2625 / 2625 Balance -178 / -178 -940 / -940 Weight 281 lb 8.485 oz 281 lb 8 oz - *Routine HEENT Exam Head: Present: normocephalic Eye: Present: EOMI, PERRL ENT: Present: mucous membranes moist - *Routine Neck Exam Present: supple. Absent: JVD, carotid bruit - *Routine Respiratory Exam Present: CTA bilaterally. Absent: accessory muscle use, rales, rhonchi, wheezes - *Routine Cardiovascular Exam Present: RRR. Absent: murmur, gallop, rubs - *Routine Abdominal Exam Present: soft. Absent: tenderness, distended, guarding - *Routine Extremities Exam Present: edema. Absent: calf tenderness - *Routine Neurological Exam Present: alert, oriented X3, moving all extremities Assessment and Plan (1) STEMI (ST elevation myocardial infarction) Current visit: Yes Status: Acute Qualifiers: Involved coronary artery: unspecified coronary artery Qualified Code(s): I21.3 - ST elevation (STEMI) myocardial infarction of unspecified site Category: Medical Code(s): I21.3 - ST elevation (STEMI) myocardial infarction of unspecified site (2) Diabetes Current visit: Yes Status: Chronic Category: Medical Code(s): E11.9 - Type 2 diabetes mellitus without complications (3) Hypertension Current visit: Yes Status: Chronic Category: Medical Code(s): I10 - Essential (primary) hypertension (4) Class 3 severe obesity due to excess calories in adult Current visit: Yes Status: Chronic Category: Medical Code(s): E66.01 - Morbid (severe) obesity due to excess calories (5) Atrial fibrillation Current visit: Yes Status: Chronic Category: Medical Code(s): I48.91 - Unspecified atrial fibrillation - Assessment and plan all Dx Assessment and Plan for all problems:: 1. Ok for discharge home. 2. DAPT with ASA and brilinta 3. Continue ELLA and BB therapy along with statin. 4. Pt to follow up with [facility].
--- NOTE | 2019-04-17 19:58 | Electrocardiograph Report ---
APPROVED REPORT Exam: Resting ECG HR:95 bpm ECG Measurements Heart Rate 95 AXES QRSd 98 QRS -48 QT 358 T-5 QTc 449 <Conclusion> Atrial fibrillation with premature ventricular or aberrantly conducted complexes Left anterior fascicular block ST elevation, consider lateral injury or acute infarct ACUTE AR Abnormal ECG Electronically signed by : Dov Early, 04/17/2019 19:58:32
--- NOTE | 2019-04-24 13:31 | Cardiology Report ---
[facility] RADIOLOGICAL CONSULTATION Patient Name : LULY DURHAM X-RAY # : [id number] Physician: ROSA, SCOTT AGE: [id number] : 1945 00:00:00 ( M ) Exam : CA ECHO DOPPLER COMPLETE ACC # : [id number] Study Date : 04/17/2019 06:35:05 Patient Class : I FINAL REPORT CLINICAL DATA: FINDINGS: TRANSCRIBED REPORT EXAM: Comprehensive 2D, Doppler, and color-flow Echocardiogram Ht: 5 ft 8 in Wt: 281lbs BSA: 2.36 BP: 129/82 mmHg Indications: stemi, thrombectomy and sstents 04/16/19, cad, afib 2D Dimensions IVSd 1.40 cm LVEF (Visual) 57.20 % PWd 1.50 cm LVDd 5.60 cm LVDs 3.90 cm LVOT 1.80 cm (M/F) 1.5-2.5 M-Mode Dimensions RVDd 2.50 cm (0.9-2.6)LA Diam 4.90 cm (1.9-4.0) LVDd 6.40 cm (3.5-5.7)Ao Diam 3.90 cm (2.0-3.7) LVDs 4.80 cm (3.5-5.7)AV Cusp 1.90 cm (1.5-2.6) IVSd 1.40 cm (0.6-1.1)PWd 1.50 cm (0.6-1.1) EF (Teich) 48.30% FS 25.00% EDV (Teich) 209.00 mLESV (Teich) 108.00 mL Aortic Valve AoV Peak Dane. 131.00 (50-130 cm/s)AI PHT 362.00 ms AO Peak GR. 7.00 mmHg Pulmonary Valve SD End VMAX 120.00 cm/s PA Accel Time 148.00 (>120 msec) Tricuspid Valve TR P. Cgcufeaw373.00 cm/sRAP Estimate 10.00 mmHg RVSP 40.00 mmHg Electronically signed by : IMPRESSION: Dictated by at Transcribed by at
== END 2019-04-17 09:45 | disposition home or self-care (01) | DRG 247 ==
LOC: ER 01:10 → CATHLAB 01:37 → 2ND 04:18
PROVIDERS: ADMIT Internal Medicine Adolescent Medicine; ATTEND Internal Medicine Adolescent Medicine
CPT/HCPCS: 36415; 71010; 71045; 80048; 80053; 82962; 83735; 84484; 85025; 85347; 92928; 92941; 93005; 93306; 93458; 96365; 96375; 99152; 99153; 99282; C1725; C1760; C1769; C1876; C9600; C9606; J1327; J1644; J2405; Q9967

== ENCOUNTER 2019-08-17 13:39 | Outpatient (RCR) | payer OTHER, MEDICARE, SELFPAY | END 2019-09-27 10:34 | disposition home or self-care (01) | LOC: PT 13:39 | DX: I21.3 ST elevation (STEMI) myocardial infarction of unspecified site (principal) | CPT/HCPCS: 93798 ==